=== PATIENT | female | born 1960 | race African-American/Black ===

== ENCOUNTER 2017-04-06 21:53 | Emergency (ER) | payer MEDICAID ==
[~2017-04-06] VITALS: Ht 167.6 cm; Wt 57.0 kg
[~2017-04-06 21:53] MED LIST: ACET-2178 RC; DEXT1CAP3 PO; LORA-250 PO; ONDA4SOL2 PO; SUCR1ORA GT; TRAM50TA3 PO
[2017-04-06] MEDS ORDERED: SODIUM CHLORIDE 0.9% 1,000 ML IV ONE (22:11)
[2017-04-06 22:54] LABS: BASOPHILS % 0.5 % (0.0-2.0); EOSINOPHILS % 0.9 % (0.0-5.0); HEMATOCRIT. 43.5 % (36.0-48.0); HEMOGLOBIN. 15.1 g/dL (12.0-16.0); LYMPHOCYTES % 24.4 % (20.0-50.0); MEAN CORPUSCULAR HEMOGLOBIN 31.8 pg (28.0-32.0); MEAN CORPUSCULAR VOLUME 91.4 fL (81.0-99.0); MEAN PLATELET VOLUME 12.8 fl (7.4-10.4); MONOCYTES % 6.8 % (2.0-8.0); NEUTROPHILS % 67.4 % (40.0-76.0); PLATELET 121 x1000/uL (130-400); RED BLOOD CELL COUNT 4.75 mill/uL (4.2-5.4); RED CELL DISTRIBUTION WIDTH 13.5 % (11.6-14.6)
[2017-04-06 23:03] LABS: INR 1.2; PROTHROMBIN TIME 12.4 sec (9.4-11.6)
[2017-04-06 23:09] LABS: CARBON DIOXIDE 25 mEq/L (21-32); CHLORIDE 108 mEq/L (98-107)
[2017-04-06 23:45] LABS: CLARITY URINE CLOUDY (CLEAR); COLOR URINE YELLOW (YELLOW); GLUCOSE URINE NEGATIVE (NEGATIVE); KETONES URINE NEGATIVE (NEGATIVE); LEUKOCYTE ESTERASE URINE TRACE (NEGATIVE); NITRITE URINE NEGATIVE (NEGATIVE); OCCULT BLOOD URINE TRACE (NEGATIVE); PH URINE 8.5 (4.5-8.0); PROTEIN URINE NEGATIVE (NEGATIVE); SPECIFIC GRAVITY URINE 1.018 (1.005-1.030)
[2017-04-07] MEDS ORDERED: LEVOFLOXACIN 750MG PREMIX 150 ML IV SCH
[2017-04-07] MEDS ORDERED: DIATR MEGLU/DIATRIZOATE SOLN 30ML PO ONE (00:15)
[2017-04-07 06:52] VITALS: BP 116/74
== END 2017-04-07 09:49 ==
LOC: ER 21:53
DX: Z43.1 Encounter for attention to gastrostomy (principal); K59.00 Constipation, unspecified; R47.01 Aphasia; G40.909 Epilepsy, unspecified, not intractable, without status epilepticus; F03.90 Unspecified dementia, unspecified severity, without behavioral disturbance, psychotic disturbance, mood disturbance, and anxiety; J44.9 Chronic obstructive pulmonary disease, unspecified; K21.9 Gastro-esophageal reflux disease without esophagitis; Z79.899 Other long term (current) drug therapy
CPT/HCPCS: 36415; 43760; 74000; 80053; 81001; 83690; 85025; 85610; 87086; 93005; 96361; 96365; 99285; J1956; J7030; Z7610

== ENCOUNTER 2017-04-08 17:18 | Emergency (ER) | payer MEDICAID ==
[~2017-04-08] VITALS: Ht 170.2 cm; Wt 65.0 kg
[2017-04-08 18:06] LABS: BASOPHILS % 0.2 % (0.0-2.0); EOSINOPHILS % 0.1 % (0.0-5.0); HEMATOCRIT. 46.9 % (36.0-48.0); HEMOGLOBIN. 15.8 g/dL (12.0-16.0); LYMPHOCYTES % 11.8 % (20.0-50.0); MEAN CORPUSCULAR HEMOGLOBIN 31.4 pg (28.0-32.0); MEAN CORPUSCULAR VOLUME 93.1 fL (81.0-99.0); MEAN PLATELET VOLUME 12.5 fl (7.4-10.4); MONOCYTES % 7.4 % (2.0-8.0); NEUTROPHILS % 80.5 % (40.0-76.0); PLATELET 123 x1000/uL (130-400); RED BLOOD CELL COUNT 5.04 mill/uL (4.2-5.4); RED CELL DISTRIBUTION WIDTH 13.8 % (11.6-14.6)
[2017-04-08 18:08] LABS: CHLORIDE 106 mEq/L (98-107)
[2017-04-08 18:10] LABS: INR 1.2; PROTHROMBIN TIME 12.3 sec (9.4-11.6)
[2017-04-08 18:16] LABS: CARBON DIOXIDE 28 mEq/L (21-32)
[2017-04-08] MEDS ORDERED: LORAZEPAM 1MG TABLET PO ONE (20:15)
[2017-04-08 22:19] VITALS: BP 121/94
== END 2017-04-08 22:30 | disposition home or self-care (01) ==
LOC: ER 18:07
DX: Z04.8 Encounter for examination and observation for other specified reasons (principal); R11.2 Nausea with vomiting, unspecified; Z93.1 Gastrostomy status; F03.90 Unspecified dementia, unspecified severity, without behavioral disturbance, psychotic disturbance, mood disturbance, and anxiety; K21.9 Gastro-esophageal reflux disease without esophagitis; J44.9 Chronic obstructive pulmonary disease, unspecified; G40.909 Epilepsy, unspecified, not intractable, without status epilepticus
CPT/HCPCS: 36415; 71010; 80053; 85025; 85610; 99285; Z7610

== ENCOUNTER → 2019-01-14 | Outpatient (CLI) | payer MEDICAID | END | disposition home or self-care (01) | LOC: CT 08:11 | PROVIDERS: ATTEND Internal Medicine Nephrology | DX: N85.2 Hypertrophy of uterus (principal); N83.202 Unspecified ovarian cyst, left side; N83.201 Unspecified ovarian cyst, right side; N28.1 Cyst of kidney, acquired; M47.819 Spondylosis without myelopathy or radiculopathy, site unspecified | CPT/HCPCS: 71260; 74177 ==

== ENCOUNTER 2021-10-08 16:31 | Emergency (ER) | payer MEDICAID ==
[~2021-10-08] VITALS: Ht 170.2 cm; Wt 68.0 kg
[~2021-10-08 16:31] MED LIST changes: -ACET-2178 RC; +TOPUD RC
[2021-10-08] MEDS ORDERED: IPRATROPIUM BROMIDE (0.02%) 0.5MG/2.5ML NEB HHN STA (17:14)
[2021-10-08] MEDS ORDERED: ALBUTEROL (0.083%) 2.5MG/3ML NEB HHN STA (17:14)
[2021-10-08] MEDS ORDERED: METHYLPREDNISOLONE SOD SUCC 125 MG/2 ML VIAL IV STA (17:14)
[2021-10-08 17:49] LABS: BG BASE EXCESS 1.4 mmol/L (-2.0-2.0); BG CARBOXYHEMOGLOBIN 0.3 % (0.5-1.5); BG DEOXYHEMOGLOBIN 5.6 % (0.0-5.0); BG FRACTION INSPIRED OXYGEN 28; BG HCO3 ACT 24.8 mmol/L (22.0-26.0); BG METHEMOGLOBIN 0.3 % (0.0-1.5); BG OXYGEN SATURATION 94.4 % (92.0-98.5); BG OXYHEMOGLOBIN 93.8 % (94.0-97.0); BG PCO2 35.6 mmHg (35.0-45.0); BG PO2 68.8 mmHg (75.0-100.0); BG SAMPLE SITE RIGHT RADIAL; BG TOTAL HEMOGLOBIN 15.2 g/dL (12.0-18.0); BG VENT MODE NASAL CANNULA
[2021-10-08 18:40] LABS: BASOPHILS % 0.9 % (0.0-2.0); EOSINOPHILS % 0.6 % (0.0-5.0); HEMATOCRIT. 43.1 % (36.0-48.0); HEMOGLOBIN. 14.7 g/dL (12.0-16.0); LYMPHOCYTES % 26.1 % (20.0-50.0); MEAN CORPUSCULAR HEMOGLOBIN 30.7 pg (28.0-32.0); MEAN CORPUSCULAR VOLUME 89.9 fL (81.0-99.0); MEAN PLATELET VOLUME 13.1 fl (7.4-10.4); MONOCYTES % 7.4 % (2.0-8.0); PLATELET 111 x1000/uL (130-400); RED CELL DISTRIBUTION WIDTH 13.9 % (11.6-14.6)
[2021-10-08 18:47] LABS: CHLORIDE 110 mEq/L (98-107)
[2021-10-08] MEDS ORDERED: METHYLPREDNISOLONE SOD SUCC 125 MG/2 ML VIAL IV NR (20:30)
[2021-10-08] MEDS ORDERED: MAGNESIUM/ALUMINUM HYDROXIDE/SIMETHICONE 30ML UDC PO PRN (20:45)
[2021-10-08] MEDS ORDERED: ACETAMINOPHEN 650MG/20.3ML UDC GT PRN ×2 (20:45)
[2021-10-08] MEDS ORDERED: ONDANSETRON HCL 4MG/2ML INJ IV PRN (20:45)
[2021-10-08] MEDS ORDERED: IPRATROPIUM/ALBUTEROL 0.5-3(2.5)MG/3ML NEB NEB PRN (20:45)
[2021-10-08] MEDS ORDERED: CLONIDINE 0.1MG TABLET PO PRN (20:45)
[2021-10-08] MEDS ORDERED: MORPHINE SULFATE 4 MG/ML CPJ (NOT FOR IM USE) IV NR (21:00)
[2021-10-08 21:31] LABS: CLARITY URINE CLEAR (CLEAR); COLOR URINE YELLOW (YELLOW); KETONES URINE NEGATIVE (NEGATIVE); LEUKOCYTE ESTERASE URINE TRACE (NEGATIVE); NITRITE URINE POSITIVE (NEGATIVE); OCCULT BLOOD URINE NEGATIVE (NEGATIVE); PROTEIN URINE NEGATIVE (NEGATIVE); SPECIFIC GRAVITY URINE 1.009 (1.005-1.030); UROBILINOGEN URINE 0.2 E.U./dL (0.2-1.0)
[2021-10-09] MEDS ORDERED: METHYLPREDNISOLONE SOD SUCC 125 MG/2 ML VIAL IV SCH (06:00)
[2021-10-09 07:54] VITALS: BP 134/78
== END 2021-10-09 07:55 ==
LOC: ER 16:31 → SUPCPDRO 20:39 → ER 10-09 07:55 → CANBEDREQ 10-10 20:17
DX: I95.9 Hypotension, unspecified (principal); F03.90 Unspecified dementia, unspecified severity, without behavioral disturbance, psychotic disturbance, mood disturbance, and anxiety; G40.909 Epilepsy, unspecified, not intractable, without status epilepticus; J44.9 Chronic obstructive pulmonary disease, unspecified; K21.9 Gastro-esophageal reflux disease without esophagitis; I10 Essential (primary) hypertension; Z86.73 Personal history of transient ischemic attack (TIA), and cerebral infarction without residual deficits; Z93.1 Gastrostomy status; Z74.01 Bed confinement status
CPT/HCPCS: 36415; 36600; 70450; 71045; 74176; 80053; 81003; 82375; 82805; 83605; 83880; 84484; 85025; 87040; 87077; 87086; 87186; 93005; 94640; 96374; 99285; J2930; Z7610

== ENCOUNTER 2023-10-01 12:17 | Inpatient (IN) | payer MEDICAID ==
[~2023-10-01] VITALS: Ht 162.6 cm; Wt 78.5 kg
[2023-10-01] MEDS ORDERED: ONDANSETRON HCL 4MG/2ML INJ IV PRN (13:00)
[2023-10-01] MEDS ORDERED: CLONIDINE 0.1MG TABLET PO PRN (13:00)
[2023-10-01] MEDS ORDERED: ACETAMINOPHEN 650MG/20.3ML UDC GT PRN (13:00)
[2023-10-01 13:13] LABS: HEMATOCRIT. 42.6 % (36.0-48.0); MEAN CORPUSCULAR HEMOGLOBIN 28.3 pg (28.0-32.0); MEAN CORPUSCULAR HGB CONC 32.9 g/dL (31.0-37.0); MEAN CORPUSCULAR VOLUME 85.8 fL (81.0-99.0); MEAN PLATELET VOLUME 12.2 fl (7.4-10.4); PLATELET 156 x1000/uL (130-400); RED BLOOD CELL COUNT 4.96 mill/uL (4.2-5.4); RED CELL DISTRIBUTION WIDTH 16.2 % (11.6-14.6); WHITE BLOOD COUNT 18.7 x1000/uL (4.5-11.0)
[2023-10-01 13:14] LABS: DIFFERENTIAL COMMENT 1
[2023-10-01 13:25] LABS: INR 1.1
[2023-10-01] MEDS: SODIUM CHLORIDE 0.9% 1,000 ML IV ONE (13:25)
[2023-10-01] MEDS: DEXT 5%/0.45% NACL 1000ML 1,000 ML IV SCH (13:26)
[2023-10-01] MEDS: ONDANSETRON HCL 4MG/2ML INJ IV STA (13:27)
[2023-10-01 13:46] LABS: CHLORIDE 109 mEq/L (98-107); POTASSIUM 3.7 mEq/L (3.5-5.1); SODIUM 140 mEq/L (136-145)
[2023-10-01 13:47] LABS: CALCIUM 10.7 mg/dL (8.7-10.4); CARBON DIOXIDE 23 mEq/L (21-32)
[2023-10-01 13:52] LABS: CREATININE 0.7 mg/dL (0.6-1.0); GLUCOSE 116 mg/dL (70-105); TROPONIN I HIGH SENSITIVITY 7 ng/L (3.0-34); UREA NITROGEN BLOOD 11 mg/dL (9-23)
[2023-10-01 13:54] LABS: ALANINE AMINOTRANSFERASE 31 IU/L (10-49); ALBUMIN 4.1 g/dL (3.2-4.8); ASPARTATE AMINOTRANSFERASE 24 IU/L (<34); BILIRUBIN DIRECT 0.3 mg/dL (<=3.0)
[2023-10-01 13:55] LABS: BILIRUBIN TOTAL 0.8 mg/dL (0.1-1.0); PROTEIN TOTAL 7.8 g/dL (6.0-8.3)
[2023-10-01] MEDS: PIPERACILLIN/TAZO 3.375G/50ML 50 ML IV SCH (14:00)
[2023-10-01 14:51] LABS: ANISOCYTOSIS 1+; PLATELET ESTIMATE NORMAL
[2023-10-01 16:59] LABS: TROPONIN I HIGH SENSITIVITY < 4 ng/L (3.0-34)
[2023-10-02 01:51] LABS: TROPONIN I HIGH SENSITIVITY 5 ng/L (3.0-34)
[2023-10-02 04:16] LABS: CHLORIDE 110 mEq/L (98-107); POTASSIUM 3.9 mEq/L (3.5-5.1); SODIUM 141 mEq/L (136-145)
[2023-10-02 04:17] LABS: CARBON DIOXIDE 21 mEq/L (21-32)
[2023-10-02 04:18] LABS: CALCIUM 10.7 mg/dL (8.7-10.4)
[2023-10-02 04:22] LABS: CREATININE 0.7 mg/dL (0.6-1.0); GLUCOSE 91 mg/dL (70-105)
[2023-10-02 04:23] LABS: UREA NITROGEN BLOOD 6 mg/dL (9-23)
[2023-10-02 04:24] LABS: ALANINE AMINOTRANSFERASE 28 IU/L (10-49); ASPARTATE AMINOTRANSFERASE 26 IU/L (<34)
[2023-10-02 04:25] LABS: BILIRUBIN TOTAL 0.8 mg/dL (0.1-1.0); PROTEIN TOTAL 7.5 g/dL (6.0-8.3)
[2023-10-02 04:27] LABS: THYROID STIMULATING HORMONE 1.99 uIU/mL (0.55-4.78)
[2023-10-02 05:30] VITALS: BP 129/68; PULSE 97; RESP 18; TEMP 97
[2023-10-02 06:57] VITALS: BP 129/68; PULSE 97; RESP 18; TEMP 97
[2023-10-02 08:00] VITALS: BP 155/80; PULSE 80; RESP 20; TEMP 97.4
[2023-10-02 08:52] LABS: BASOPHILS % 0.3 % (0.0-2.0); EOSINOPHILS % 0.9 % (0.0-5.0); HEMOGLOBIN. 13.4 g/dL (12.0-16.0); LYMPHOCYTES % 7.9 % (20.0-50.0); MEAN CORPUSCULAR HEMOGLOBIN 28.5 pg (28.0-32.0); MEAN CORPUSCULAR HGB CONC 32.7 g/dL (31.0-37.0); MEAN CORPUSCULAR VOLUME 87.1 fL (81.0-99.0); MEAN PLATELET VOLUME 13.4 fl (7.4-10.4); MONOCYTES % 5.3 % (2.0-8.0); NEUTROPHILS % 85.6 % (40.0-76.0); PLATELET 172 x1000/uL (130-400); RED CELL DISTRIBUTION WIDTH 16.3 % (11.6-14.6); WHITE BLOOD COUNT 16.4 x1000/uL (4.5-11.0)
[2023-10-02 12:00] VITALS: BP 150/74; PULSE 81; RESP 19; TEMP 97.2
[2023-10-02 20:00] VITALS: BP 120/57; PULSE 79; RESP 18; TEMP 98.2
[2023-10-03] VITALS: BP 111/44; PULSE 80; RESP 18; TEMP 98.1
[2023-10-03] MEDS ORDERED: LORAZEPAM 2MG/ML INJ IV NR (01:30)
[2023-10-03] MEDS: LORAZEPAM 2MG/ML INJ IV PRN (02:47)
[2023-10-03 04:00] VITALS: BP 215/115; PULSE 106; RESP 34; TEMP 99.9
[2023-10-03] MEDS ORDERED: LEVETIRACETAM 500 MG in SODIUM CHLORIDE 0.9% 100 ML IV SCH (05:15)
[2023-10-03] MEDS ORDERED: HYDRALAZINE 20MG/ML VIAL IV ONE (05:45)
[2023-10-03] MEDS ORDERED: HYDRALAZINE 10 MG in SODIUM CHLORIDE 0.9% 49.5 ML IV PRN (05:45)
[2023-10-03] MEDS ORDERED: HYDRALAZINE 20MG/ML VIAL IV PRN ×2 (05:45→12:00)
[2023-10-03] MEDS: FLUMAZENIL 0.1 MG/ML 5ML VIAL IV NR (05:45)
[2023-10-03] MEDS: LEVETIRACETAM 500MG PREMIX 100 ML IV SCH (05:48)
[2023-10-03] MEDS: HYDRALAZINE 10 MG in SODIUM CHLORIDE 0.9% 49.5 ML IV NR (05:54)
[2023-10-03 07:35] LABS: BASOPHILS % 0.6 % (0.0-2.0); DIFFERENTIAL COMMENT 0; EOSINOPHILS % 1.4 % (0.0-5.0); HEMATOCRIT. 40.1 % (36.0-48.0); HEMOGLOBIN. 13.5 g/dL (12.0-16.0); LYMPHOCYTES % 14.8 % (20.0-50.0); MEAN CORPUSCULAR HEMOGLOBIN 29.2 pg (28.0-32.0); MEAN CORPUSCULAR HGB CONC 33.7 g/dL (31.0-37.0); MEAN CORPUSCULAR VOLUME 86.6 fL (81.0-99.0); MONOCYTES % 6.3 % (2.0-8.0); NEUTROPHILS % 76.9 % (40.0-76.0); PLATELET 156 x1000/uL (130-400); RED BLOOD CELL COUNT 4.63 mill/uL (4.2-5.4); RED CELL DISTRIBUTION WIDTH 16.1 % (11.6-14.6); WHITE BLOOD COUNT 9.1 x1000/uL (4.5-11.0)
[2023-10-03 07:38] LABS: CHLORIDE 110 mEq/L (98-107); POTASSIUM 3.2 mEq/L (3.5-5.1); SODIUM 143 mEq/L (136-145)
[2023-10-03 07:39] LABS: CARBON DIOXIDE 22 mEq/L (21-32)
[2023-10-03 07:40] LABS: CALCIUM 10.7 mg/dL (8.7-10.4)
[2023-10-03 07:44] LABS: CREATININE 0.8 mg/dL (0.6-1.0); GLUCOSE 100 mg/dL (70-105); UREA NITROGEN BLOOD 11 mg/dL (9-23)
[2023-10-03 07:47] LABS: CREATINE KINASE 224 IU/L (34-145)
[2023-10-03 08:00] VITALS: BP 135/82; PULSE 92; RESP 20; TEMP 98.2
[2023-10-03 10:36] LABS: BG BASE EXCESS 0.2 mmol/L (-2.0-2.0); BG CARBOXYHEMOGLOBIN 0.9 % (0.5-1.5); BG DEOXYHEMOGLOBIN 4.8 % (0.0-5.0); BG FRACTION INSPIRED OXYGEN 28; BG METHEMOGLOBIN 0.2 % (0.0-1.5); BG OXYGEN SATURATION 95.1 % (92.0-98.5); BG OXYHEMOGLOBIN 94.1 % (94.0-97.0); BG PCO2 32.2 mmHg (35.0-45.0); BG PH 7.471 (7.350-7.450); BG PO2 72.6 mmHg (75.0-100.0); BG SAMPLE SITE RIGHT RADIAL; BG TOTAL HEMOGLOBIN 14.7 g/dL (12.0-18.0); BG VENT MODE NASAL CANNULA
[2023-10-03] MEDS ORDERED: IPRATROPIUM/ALBUTEROL 0.5-3(2.5)MG/3ML NEB HHN PRN (12:00)
[2023-10-03 12:30] VITALS: BP 170/100; PULSE 96; RESP 18; TEMP 97.2
[2023-10-03] MEDS: KCL 20MEQ/100ML PREMIX 100 ML IV NR (13:26)
[2023-10-03 16:21] VITALS: BP 160/92; PULSE 106; RESP 18; TEMP 97.8
[2023-10-03 20:00] VITALS: BP 151/70; PULSE 94; RESP 18; TEMP 97.6
[2023-10-04] VITALS (7 sets, daily range): BP systolic 117–145; BP diastolic 52–85; PULSE 73–97; RESP 19–24; TEMP 97.2–98.7; O2SAT 98
[2023-10-04 07:43] LABS: CALCIUM 10.5 mg/dL (8.7-10.4); CARBON DIOXIDE 24 mEq/L (21-32); CHLORIDE 113 mEq/L (98-107); POTASSIUM 3.4 mEq/L (3.5-5.1); SODIUM 146 mEq/L (136-145)
[2023-10-04 07:48] LABS: CREATININE 0.7 mg/dL (0.6-1.0)
[2023-10-04 07:49] LABS: GLUCOSE 95 mg/dL (70-105); UREA NITROGEN BLOOD 12 mg/dL (9-23)
[2023-10-04 07:52] LABS: BASOPHILS % 0.3 % (0.0-2.0); DIFFERENTIAL COMMENT 0; EOSINOPHILS % 1.6 % (0.0-5.0); HEMATOCRIT. 38.4 % (36.0-48.0); HEMOGLOBIN. 12.7 g/dL (12.0-16.0); MEAN CORPUSCULAR HEMOGLOBIN 28.8 pg (28.0-32.0); MEAN CORPUSCULAR VOLUME 87.2 fL (81.0-99.0); MEAN PLATELET VOLUME 12.8 fl (7.4-10.4); MONOCYTES % 8.1 % (2.0-8.0); PLATELET 163 x1000/uL (130-400); RED BLOOD CELL COUNT 4.41 mill/uL (4.2-5.4); RED CELL DISTRIBUTION WIDTH 15.8 % (11.6-14.6); WHITE BLOOD COUNT 9.3 x1000/uL (4.5-11.0)
[2023-10-04] MEDS: LACTULOSE 20G/30ML UDC PO NR (12:36)
[2023-10-04] MEDS: METOCLOPRAMIDE HCL 10MG/2ML VIAL IV SCH (12:36)
[2023-10-04] MEDS: POTASSIUM CHLORIDE 20MEQ/PACKET PO SCH (16:23)
[2023-10-04] MEDS: SENNOSIDES/DOCUSATE SOD 8.6/50MG TABLET PO SCH (20:45)
[2023-10-04] MEDS: IPRATROPIUM/ALBUTEROL 0.5-3(2.5)MG/3ML NEB HHN SCH (22:56)
[2023-10-04] MEDS: ACETYLCYSTEINE 200MG/ML 20% VIAL 4ML INH SCH (22:57)
[2023-10-05] VITALS (9 sets, daily range): BP systolic 101–141; BP diastolic 52–68; PULSE 68–80; RESP 18–22; TEMP 96.4–97.8; O2SAT 97
[2023-10-05 08:36] LABS: CHLORIDE 116 mEq/L (98-107); POTASSIUM 3.5 mEq/L (3.5-5.1); SODIUM 144 mEq/L (136-145)
[2023-10-05 08:37] LABS: CARBON DIOXIDE 20 mEq/L (21-32)
[2023-10-05 08:42] LABS: CREATININE 0.7 mg/dL (0.6-1.0); GLUCOSE 106 mg/dL (70-105); UREA NITROGEN BLOOD 6 mg/dL (9-23)
[2023-10-05] MEDS: DOCUSATE SODIUM SUGAR FREE 100MG/10ML UDC GT SCH (08:43)
[2023-10-05 11:55] LABS: BASOPHILS % 0.6 % (0.0-2.0); DIFFERENTIAL COMMENT 0; EOSINOPHILS % 1.4 % (0.0-5.0); HEMOGLOBIN. 12.3 g/dL (12.0-16.0); LYMPHOCYTES % 14.9 % (20.0-50.0); MEAN CORPUSCULAR HEMOGLOBIN 29.1 pg (28.0-32.0); MEAN CORPUSCULAR HGB CONC 33.2 g/dL (31.0-37.0); MEAN CORPUSCULAR VOLUME 87.6 fL (81.0-99.0); MEAN PLATELET VOLUME 12.5 fl (7.4-10.4); MONOCYTES % 8.4 % (2.0-8.0); NEUTROPHILS % 74.7 % (40.0-76.0); PLATELET 139 x1000/uL (130-400); RED BLOOD CELL COUNT 4.22 mill/uL (4.2-5.4); RED CELL DISTRIBUTION WIDTH 16.2 % (11.6-14.6)
[2023-10-05] MEDS: POTASSIUM CHLORIDE 20MEQ/PACKET PO SCH (12:45)
[2023-10-06] VITALS (10 sets, daily range): BP systolic 120–163; BP diastolic 60–89; PULSE 78–101; RESP 18–24; TEMP 98–98.8
[2023-10-06] MEDS: HYDRALAZINE 20MG/ML VIAL IV PRN (05:29)
[2023-10-06 07:13] LABS: BASOPHILS % 0.5 % (0.0-2.0); CARBON DIOXIDE 23 mEq/L (21-32); CHLORIDE 112 mEq/L (98-107); EOSINOPHILS % 1.3 % (0.0-5.0); HEMATOCRIT. 38.7 % (36.0-48.0); HEMOGLOBIN. 12.7 g/dL (12.0-16.0); MEAN CORPUSCULAR HEMOGLOBIN 28.9 pg (28.0-32.0); MEAN CORPUSCULAR HGB CONC 32.7 g/dL (31.0-37.0); MEAN CORPUSCULAR VOLUME 88.2 fL (81.0-99.0); MONOCYTES % 5.2 % (2.0-8.0); RED BLOOD CELL COUNT 4.39 mill/uL (4.2-5.4); RED CELL DISTRIBUTION WIDTH 16.1 % (11.6-14.6); SODIUM 144 mEq/L (136-145); WHITE BLOOD COUNT 11.1 x1000/uL (4.5-11.0)
[2023-10-06 07:17] LABS: CREATININE 0.7 mg/dL (0.6-1.0)
[2023-10-06 07:18] LABS: GLUCOSE 96 mg/dL (70-105)
[2023-10-06 07:19] LABS: UREA NITROGEN BLOOD 7 mg/dL (9-23)
[2023-10-06 08:18] LABS: DIFFERENTIAL COMMENT 1
[2023-10-06] MEDS: AMLODIPINE 2.5MG TABLET GT SCH (09:05)
[2023-10-06] MEDS: ASCORBIC ACID 500 MG TABLET PO SCH (09:06)
[2023-10-06] MEDS: ZINC SULFATE 220 MG ( 50 ) CAPSULE PO SCH (09:08)
[2023-10-06 10:08] LABS: PLATELET 150 x1000/uL (130-400)
[2023-10-06 17:48] LABS: BG BASE EXCESS 2.1 mmol/L (-2.0-2.0); BG CARBOXYHEMOGLOBIN 0.6 % (0.5-1.5); BG DEOXYHEMOGLOBIN 4.8 % (0.0-5.0); BG FRACTION INSPIRED OXYGEN 21; BG HCO3 ACT 24.6 mmol/L (22.0-26.0); BG METHEMOGLOBIN 0.2 % (0.0-1.5); BG OXYGEN SATURATION 95.2 % (92.0-98.5); BG OXYHEMOGLOBIN 94.4 % (94.0-97.0); BG PH 7.503 (7.350-7.450); BG SAMPLE SITE RIGHT RADIAL; BG VENT MODE ROOM AIR
[2023-10-07] VITALS (9 sets, daily range): BP systolic 118–153; BP diastolic 65–82; PULSE 72–98; RESP 16–24; TEMP 97.6–98.2; O2SAT 96–98
[2023-10-07 11:26] LABS: BASOPHILS % 0.6 % (0.0-2.0); EOSINOPHILS % 1.5 % (0.0-5.0); HEMATOCRIT. 39.8 % (36.0-48.0); HEMOGLOBIN. 12.8 g/dL (12.0-16.0); LYMPHOCYTES % 17.6 % (20.0-50.0); MEAN CORPUSCULAR HEMOGLOBIN 28.3 pg (28.0-32.0); MEAN CORPUSCULAR HGB CONC 32.2 g/dL (31.0-37.0); MONOCYTES % 6.7 % (2.0-8.0); NEUTROPHILS % 73.6 % (40.0-76.0); RED BLOOD CELL COUNT 4.52 mill/uL (4.2-5.4); RED CELL DISTRIBUTION WIDTH 16.5 % (11.6-14.6); WHITE BLOOD COUNT 9.3 x1000/uL (4.5-11.0)
[2023-10-07 11:31] LABS: CHLORIDE 113 mEq/L (98-107); POTASSIUM 3.4 mEq/L (3.5-5.1); SODIUM 144 mEq/L (136-145)
[2023-10-07 11:32] LABS: CALCIUM 10.8 mg/dL (8.7-10.4); CARBON DIOXIDE 26 mEq/L (21-32)
[2023-10-07 11:37] LABS: CREATININE 0.7 mg/dL (0.6-1.0); GLUCOSE 107 mg/dL (70-105); UREA NITROGEN BLOOD 9 mg/dL (9-23)
[2023-10-07 11:46] LABS: DIFFERENTIAL COMMENT 1
[2023-10-07 13:01] LABS: PLATELET 137 x1000/uL (130-400)
== END 2023-10-07 19:15 | DRG 254 ==
LOC: ER 13:32 → 5WST 15:34 → EDBEDREQ 15:38 → EDBEDREQTM 15:38 → 6EST 10-02 05:05 → 8WST 10-03 09:49
PROVIDERS: ADMIT Internal Medicine Nephrology; ATTEND Internal Medicine Nephrology
PROC: 4A00X4Z Measurement of Central Nervous Electrical Activity, External Approach (ICD-10-PCS; principal; 2023-10-04)
DX: K59.00 Constipation, unspecified (principal); J96.00 Acute respiratory failure, unspecified whether with hypoxia or hypercapnia; J69.0 Pneumonitis due to inhalation of food and vomit; G93.40 Encephalopathy, unspecified; L89.159 Pressure ulcer of sacral region, unspecified stage; D72.829 Elevated white blood cell count, unspecified; E11.9 Type 2 diabetes mellitus without complications; L89.513 Pressure ulcer of right ankle, stage 3; L89.893 Pressure ulcer of other site, stage 3; E83.52 Hypercalcemia; I10 Essential (primary) hypertension; J44.9 Chronic obstructive pulmonary disease, unspecified; G30.9 Alzheimer's disease, unspecified; G40.909 Epilepsy, unspecified, not intractable, without status epilepticus; K21.9 Gastro-esophageal reflux disease without esophagitis; D25.9 Leiomyoma of uterus, unspecified; K44.9 Diaphragmatic hernia without obstruction or gangrene; R62.7 Adult failure to thrive; F02.80 Dementia in other diseases classified elsewhere, unspecified severity, without behavioral disturbance, psychotic disturbance, mood disturbance, and anxiety; Z74.01 Bed confinement status; Z86.718 Personal history of other venous thrombosis and embolism; Z95.828 Presence of other vascular implants and grafts; Z79.899 Other long term (current) drug therapy; Z86.73 Personal history of transient ischemic attack (TIA), and cerebral infarction without residual deficits; Z93.1 Gastrostomy status
CPT/HCPCS: 36415; 36600; 71045; 74018; 74176; 80048; 80053; 80076; 82375; 82550; 82805; 82962; 83605; 83735; 83880; 84145; 84443; 84484; 85025; 93005; 93306; 94640; 99291; C1893; J0360; J1953; J2060; J2405; J2543; J2765; J3480; J3490; J7030; J7608